=== PATIENT | male | born 1960 | race American Indian/Alaskan Native ===

== ENCOUNTER 2017-12-24 00:20 | Emergency (ER) | payer OTHER ==
[2017-12-24 00:27] VITALS: BP 137/86
[2017-12-24] MEDS ORDERED: MOTRIN PO ONE (01:06)
[2017-12-24 01:22] LABS: Bilirubin,Urine NEG (Negative); Blood,Urine NEG (Negative); Color,Urine Yellow (Yellow); Mucus,Urine FEW /HPF; Protein,Urine <15 mg/dL mg/dL (Negative); RBC,Urine < 1.0 /HPF (0.0-6.0); Urobilinogen,Urine < 2.0 mg/dL (<2.0); WBC,Urine < 1.0 /HPF (0.0-6.0)
--- NOTE | 2017-12-24 03:14 | Cat Scan Report ---
FINAL REPORT EXAM: CT ABDOMEN PELVIS WO CON HISTORY: R lower back pain/ h/o kidney stone TECHNIQUE: Routine axial imaging was obtained of the abdomen pelvis without oral or IV contrast. Sagittal and coronal reconstructions were reviewed. FINDINGS: The lung bases reveal minimal atelectatic changes in left lower lobe. Pleural fluid is not seen. The liver, gallbladder, pancreas, spleen, and adrenal glands appear normal. The kidneys reveal 2 millimeter nonobstructing stone central in the right kidney. There no evidence of hydronephrosis. The bowel loops are normal in caliber and course. The appendix is not enlarged. There is no evidence of free fluid or adenopathy. In the pelvis the prostate gland and bladder appear normal. The skeletal structures reveal multilevel disc degeneration in the lumbar spine IMPRESSION: No acute process in the abdomen and pelvis. Small nonobstructing stone right kidney. No evidence of hydronephrosis. Multilevel disc degeneration in the lumbar spine
--- NOTE | 2017-12-24 03:14 | Emergency Department Report ---
ED Back Pain/Injury HPI - General Chief Complaint: Back Pain/Injury Stated Complaint: FLANK PAIN Time Seen by Provider: 12/24/17 01:05 Source: patient Limitations: No Limitations - History of Present Illness Initial Comments: This is a 57 y.o. male that presents with lower back pain on right side for 2 days. 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 Pain is worse today. He have a history of low back pain and kidney stones. Reports he was scheduled to have surgery a could years ago but didn't have it done. This pain today feel the same as 3 years ago when he had kidney stones. He is taking NSAID's for pain control without improvement of symptoms. States pain is non-radiating, intermittent, and sharp. Pain is 10/10 on pain scale currently. Denies discharge , urgency, radiation, nausea/vomiting, numbness, and tingling. MD Complaint: back pain -: days(s) (2) Similar Symptoms Previously: Yes (history of kidney stone 3 years ago) Place: home Radiation: flank (right) Severity: severe Severity scale (0 -10): 10 Quality: sharp Consistency: intermittent Improves With: none Worsens With: none Associated Symptoms: denies other symptoms Treatments Prior to Arrival: NSAIDS - Related Data Previous Rx's Medication Instructions Recorded Last Taken Type Ondansetron [Zofran Odt] 4 mg PO Q8HR PRN #15 tab.rapdis 12/24/17 Unknown Rx traMADol [Ultram 50 MG tab] 50 mg PO Q6HR PRN #20 tablet 12/24/17 Unknown Rx Allergies Allergy/AdvReac Type Severity Reaction Status Date / Time No Known Allergies Allergy Unverified 12/24/17 00:48 ED Review of Systems ROS: Stated complaint: FLANK PAIN Other details as noted in HPI Constitutional: denies: chills, fever Respiratory: denies: cough, shortness of breath, wheezing Cardiovascular: denies: chest pain, palpitations, dyspnea on exertion, edema, syncope Endocrine: no symptoms reported Gastrointestinal: denies: abdominal pain, nausea, vomiting, diarrhea Genitourinary: denies: urgency, dysuria, frequency Musculoskeletal: back pain (lower back on right side). denies: joint swelling, arthralgia Skin: denies: rash, lesions Neurological: denies: headache, weakness, paresthesias Psychiatric: denies: anxiety, depression ED Back Pain Physical Exam - Exam General: Vital signs noted. No distress. Alert and acting appropriately. Back/Abdomen: Yes Flank Tenderness (right on percussion), No Abdominal Tenderness, No Perithoracic Tenderness, No Perilumbar Tenderness, No Sacroiliac Tenderness, No Straight Leg Raise Pain Neuro: Yes Normal Sensation, Yes Normal DTR's, Yes Normal Gait, No Motor Weakness ED Course Vital Signs 12/24/17 12/24/17 00:26 00:43 Temperature 97.9 F 97.9 F Pulse Rate 69 69 Respiratory 18 18 Rate Blood Pressure 137/86 Blood Pressure 137/86 [Right] O2 Sat by Pulse 97 97 Oximetry Ed Back Pain Tests - Tests Tests: Normal UA ED Medical Decision Making - Radiology Data Radiology results: report reviewed CT of abdomen IMPRESSION: No acute process in the abdomen and pelvis. Small nonobstructing stone right kidney. No evidence of hydronephrosis. Multilevel disc degeneration in the lumbar spine - Medical Decision Making This is a 57 y.o. male that presents with low back pain on the right side for 2 days. Patient is stable and was examined by me. Vitals normal. Patient given ibuprofen 800 mg po once in ER. UA and CT of abdomen and pelvis obtained. No acute process in the abdomen and pelvis. Small nonobstructing stone right kidney. No evidence of hydronephrosis. Multilevel disc degeneration in the lumbar spine. UA is normal. Given toradol 30 mg IM and zofran 4 mg ODT once in ER. Informed patient of CT results. Patient given a copy of report and CD to follow up with PCP in [place], [place]. Advised to increase water intake and drain urine. Start tramadol and zofran. Discussed plan with patient and he agreed with plan. Discharged home in stable condition. Follow up with PCP in [place], [place] 24-72 hours. Critical care attestation.: If time is entered above; I have spent that time in minutes in the direct care of this critically ill patient, excluding procedure time. ED Disposition Clinical Impression: Nephrolithiasis Low back pain Qualifiers: Chronicity: acute Back pain laterality: right Sciatica presence: without sciatica Qualified Code(s): M54.5 - Low back pain Disposition: TO HOME OR SELFCARE Is pt being admited?: No Does the pt Need Aspirin: No Condition: Stable Instructions: Kidney Stones (ED), Flank Pain (ED) Additional Instructions: Increase fluid intake to 2 liters per day. Strain urine daily or look in toilet to see if stone has passed. Eat a low protein and low sodium diet to prevent reoccurrence of kidney stones. Follow up with Primary Care Provider in 24-73 hours. Prescriptions: Ondansetron [Zofran Odt] 4 mg PO Q8HR PRN #15 tab.rapdis PRN Reason: Nausea And Vomiting traMADol [Ultram 50 MG tab] 50 mg PO Q6HR PRN #20 tablet PRN Reason: Pain Referrals: [facility] [Outside] - 3-5 Days [facility] [Outside] - 3-5 Days [facility] [Outside] - 3-5 Days Time of Disposition: 03:55 Print Language: SPANISH
[2017-12-24] MEDS ORDERED: TORADOL ONE (03:51)
[2017-12-24] MEDS ORDERED: ZOFRAN ODT PO ONE (03:51)
[2017-12-24] MEDS ORDERED: TORADOL IM ONE (03:51)
[2017-12-24] MEDS ORDERED: ZOFRAN ODT ONE (03:51)
== END 2017-12-24 04:25 | disposition home or self-care (01) ==
LOC: ED 00:20
DX: N20.0 Calculus of kidney (principal)
CPT/HCPCS: 74176; 81001; 96372; 99284; J1885; Q0162